=== PATIENT | female | born 1970 | race Caucasian/White ===

== ENCOUNTER 2022-01-12 13:43 | Emergency (ER) | payer OTHER ==
[2022-01-12 14:33] LABS: BASOPHIL 0.7 % (0-2); EOSINOPHIL 2.6 % (0-5); HCT 47.8 % (37.0-47.0); LYMPHOCYTE 24.2 % (15-48); MCH 31.3 pg (25.0-31.0); MCHC 33.5 g/dL (32.0-36.0); MCV 93.5 fL (78.0-100.0); MONOCYTE 5.6 % (0-12); MPV 8.6 fL (6.0-9.5); NEUTROPHIL 66.2 % (41-80); NRBC 0; PLT 494 K/uL (150-400); RBC 5.11 M/uL (4.20-5.40); RDW 13.4 % (11.5-14.0); WBC 11.8 K/uL (4.0-10.5)
[2022-01-12 14:36] LABS: CORONAVIRUS 2019 SARS-COV-2 NEGATIVE (NEGATIVE); INFLUENZA A NAA NEGATIVE (NEGATIVE)
[2022-01-12 15:11] LABS: ALBUMIN 4.1 g/dL (3.4-5.0); ALKALINE PHOSHATASE 111 U/L (46-116); ALT 32 U/L (14-59); AST 21 U/L (15-37); BILIRUBIN - TOTAL 0.2 mg/dL (0.2-1.0); BUN 12 mg/dL (7-18); BUN/CREAT RATIO (CALC) 14.5 RATIO; CHLORIDE 99 mmol/L (98-107); CO2 (BICARBONATE) 32 mmol/L (21-32); CREATININE 0.83 mg/dL (0.51-0.95); GLOBULIN (CALCULATION) 3.8 g/dL; GLUCOSE 175 mg/dL (74-106); POTASSIUM 4.6 mmol/L (3.5-5.1); TOTAL PROTEIN 7.9 g/dL (6.4-8.2)
== END 2022-01-12 17:15 | disposition home or self-care (01) ==
LOC: FER 13:43
PROVIDERS: Physician Assistant
DX: R91.8 Other nonspecific abnormal finding of lung field (principal); F17.210 Nicotine dependence, cigarettes, uncomplicated; Z86.16 Personal history of COVID-19; Z20.822 Contact with and (suspected) exposure to COVID-19
CPT/HCPCS: 36415; 71045; 71260; 80053; 83880; 84145; 84484; 85025; 85379; Q9967; U0002